=== PATIENT | female | born 1960 | race Caucasian/White ===

== ENCOUNTER 2017-05-04 06:29 | Day surgery (SDC) | payer OTHER ==
[~2017-05-04] VITALS: Ht 170.2 cm; Wt 113.4 kg
[~2017-05-04 06:29] MED LIST: TRAMADOL HCL50 MG PO
[2017-05-04] MEDS ORDERED: TIROSINT75 MCG PO (07:50)
[2017-05-04] MEDS ORDERED: IRON18 MG PO (07:51)
[2017-05-04] MEDS ORDERED: DAILY MULTIPLE1 EACH PO (07:51)
[2017-05-04] MEDS ORDERED: WELLBUTRIN XL300 MG PO (07:51)
[2017-05-04] MEDS ORDERED: LEXAPRO10 MG PO (07:51)
[2017-05-04] MEDS ORDERED: VITAMIN E100 UNI1 PO (07:52)
--- NOTE | 2017-05-04 09:17 | NUR ---
05[facility]04/17 0917 [facility], O2 TURNED OFF.
--- NOTE | 2017-05-06 22:37 | OR ---
[facility] [address] [place], [place] [address] Signed DATE OF SERVICE: 05/04/2017 PREOPERATIVE DIAGNOSES: History of colonic polyps at 20 cm, 2011. Family history of colon cancer in mother and brother. POSTOPERATIVE DIAGNOSES: Two diminutive polyps at the splenic flexure (excised). Sessile polyp at 18 cm (excised). PROCEDURE PERFORMED: Total colonoscopy to cecum with hot snare polypectomy x1 and cold morcellation polypectomy x2. SURGEON: Cal Vasquez MD. ANESTHESIA: Intravenous sedation, fentanyl 100 mcg, Versed 5 mg. INDICATION: This 57-year-old white woman was a patient of Soheila LOCKHART in the past and has known family history of colon cancer in the mother and brother. She underwent laparoscopic cholecystectomy with cholangiogram by me in September of 2016 for acute cholecystitis. She has recovered fully from that. She did undergo colonoscopy by me in 2011 where she was noted to have an adenoma at 20 cm. This was excised at that time. She is generally symptom-free. She is admitted to undergo colonoscopy understanding the risks of bleeding, infection, and perforation. FINDINGS: The prep was good. Complete colonoscopy was undertaken to the cecum. There were 2 diminutive polyps of the splenic flexure, which were excised with cold morcellation technique. There was a sessile polyp at 18 cm, which was excised with hot snare polypectomy technique. There were no other findings or concern other than internal hemorrhoids. PROCEDURE IN DETAIL: The patient was brought to the endoscopy suite and placed in lateral decubitus position. Given intravenous sedation to the point of slurred speech and nystagmus. Digital rectal examination was normal. An Olympus video colonoscope was passed in the rectum and manipulated throughout the colon. At the splenic flexure, there were 2 very small mucosal diminutive polyps. They Electronically Signed By: CAL VASQUEZ MD 05/06/17 2237 PATIENT NAME: LEO BARBA OPERATIVE REPORT DATE OF : 64 PHYSICIAN: CAL VASQUEZ MD REPORT #: [id number] REPORT IS CONFIDENTIAL AND NOT TO BE RELEASED WITHOUT AUTHORIZATION [facility] [address] [place], [place] [address] Signed were excised with cold morcellation technique. The scope was advanced ultimately to the cecum. The irrigation was undertaken in the cecum. The appendiceal orifice was well identified as was the ileocecal valve. The scope was withdrawn from that point. Examination throughout showed no sign of abnormality, until the area of initial polypectomy by cold morcellation technique of the splenic flexure was identified, confirming its position. The scope was further withdrawn and at 18 cm from the anal verge was a sessile polyp. T h is was excised with hot snare polypectomy technique in the usual way. The specimen was passed for pathology. Further withdrawal of scope allowed for retroflexed view in the rectum showing internal hemorrhoidal changes and some hypertrophied anal papilla. The scope was removed. The patient was taken to recovery room in good condition. CONCLUDING DIAGNOSIS: Polyps x3. PLAN: Recommend repeat colonoscopy in 5 years, sooner if clinically indicated. She will return to the ongoing care of Soheila Kelly or another provider of her choice. MD MARCIAL Mcdonough/Mingl /[id number] Electronically Signed By: CAL VASQUEZ MD 05/06/17 2237 PATIENT NAME: LEO BARBA OPERATIVE REPORT DATE OF : 64 PHYSICIAN: CAL VASQUEZ MD REPORT #: [id number] REPORT IS CONFIDENTIAL AND NOT TO BE RELEASED WITHOUT AUTHORIZATION
== END 2017-05-04 09:41 | disposition home or self-care (01) ==
LOC: OPS 06:29 → DS 06:29 → OPS 08:30 → DS 05-14 08:30 → OPS 05-14 08:30
PROVIDERS: Surgery
PROC: 0DBL8ZX Excision of Transverse Colon, Via Natural or Artificial Opening Endoscopic, Diagnostic (ICD-10-PCS; 2017-05-04)
PROC: 0DBN8ZX Excision of Sigmoid Colon, Via Natural or Artificial Opening Endoscopic, Diagnostic (ICD-10-PCS; principal; 2017-05-04 08:30)
DX: Z12.11 Encounter for screening for malignant neoplasm of colon (principal); D12.3 Benign neoplasm of transverse colon; K51.40 Inflammatory polyps of colon without complications; K64.8 Other hemorrhoids; E03.9 Hypothyroidism, unspecified; F32.9 Major depressive disorder, single episode, unspecified; Z86.010 Personal history of colon polyps; Z80.0 Family history of malignant neoplasm of digestive organs; Z88.5 Allergy status to narcotic agent; Z90.710 Acquired absence of both cervix and uterus; Z90.49 Acquired absence of other specified parts of digestive tract; Z98.890 Other specified postprocedural states
CPT/HCPCS: 99152; 99153; J2250; J3010; J7120

== ENCOUNTER 2024-05-02 06:42 | Day surgery (SDC) | payer OTHER ==
[2024-04-26 14:48] VITALS: BP 126/89
[~2024-05-02] VITALS: Ht 170.2 cm; Wt 125.0 kg
--- NOTE | ~2024-05-02 | OR ---
[facility] [address] [place], [place] [address] Draft DATE OF OPERATION: 05/02/2024 SURGEON: Jackie Rubio MD PREOPERATIVE DIAGNOSIS: Degenerative joint disease, left knee. POSTOPERATIVE DIAGNOSIS: Degenerative joint disease, left knee. PROCEDURE PERFORMED: Left total knee arthroplasty with Doug. LEATHER SCRUBBER: Soheila Kelly PA-C. Soheila was present and critical for all portions of procedure. ANESTHESIA: Spinal. BLOOD LOSS: 175 mL. TOURNIQUET TIME: Zero. IMPLANTS: Tom Triathlon size 4, 10 mm polyethylene and 32 mm patella. BRIEF HISTORY: Leslie is a 64-year-old female with progressive worsening of osteoarthritis, worst in the patellofemoral compartment. Risks, benefits, and alternatives of surgery were discussed with her, she understood and wished to proceed. DESCRIPTION OF PROCEDURE: Once consent was obtained, she was taken to the operating room. After adequate anesthesia, she was placed on the operating room table. All downside pressure points were well padded and a hip bump was placed under the left hip. The leg was then prepped and draped in a standard sterile fashion. The knee was approached through a standard anterior midline incision. Skin flaps were developed medially and laterally. A low PATIENT NAME: LESLIE BARBA OPERATIVE REPORT DATE OF : 64 REPORT #: [id number] PHYSICIAN: JACKIE RUBIO MD PCP: KARISSA NORRIS MD REPORT IS CONFIDENTIAL AND NOT TO BE RELEASED WITHOUT AUTHORIZATION [facility] [address], [place] [address] Draft midvastus arthrotomy was performed and the infrapatellar fat pad was excised. The MCL was elevated as a sleeve around to the posteromedial corner. The anterior horns of the menisci were transected as was the ACL, PCL was found to be intact. The computer arrays for the Doug system were placed in the medial femoral condyle and proximal tibia. The leg was then registered with the computer as were the fine anatomic points of the knee. The four ligamentous poses were then taken. Minor adjustments were made to the position of the implant. The robot was then brought in. The four straight cuts were made followed by the two angle cuts with care taken to protect the patellar tendon and MCL. The bony remnants were removed as were any remaining osteophytes. The posterior femoral osteophyte was removed off the medial side. No posterior release was performed. The trials were then positioned and the knee was taken from 110 degrees to 0 with good stability throughout. The patella was cut sized and drilled for a 32 mm patella. It tracked well. The distal femoral drill holes were completed. The proximal tibia was finished using the keel punch followed by the drill holes. The implants were then obtained. The tibia was impacted into position until it was seated and flushed. The polyethylene was snapped into position. The femur was impacted. The knee was then extended and loaded. The patella was clamped into position. Once again, the knee was taken through range of motion and found to be satisfactory. The patella tracked well. The periarticular soft tissues were injected with 100 mL of ropivacaine and Toradol mixture. The On-Q pain pump was percutaneously placed into the adductor canal from the suprapatellar pouch. Arthrotomy was then closed using a combination of #2 FiberWire and #2 Stratafix. The subdermal was closed with 0 Stratafix and the skin was closed with 3-0 Stratafix. The wound was sealed with LiquiBand and Steri-Strips, dressed with an Acticoat-7 dressing, ABD, and Enrique wrap. She tolerated the procedure well. All sponge, needle, and instrument counts were correct. Jackie Rubio MD BA/MODL /[id number] Copies: ~ PATIENT NAME: LESLIE BARBA OPERATIVE REPORT DATE OF : 64 REPORT #: [id number] PHYSICIAN: JACKIE RUBIO MD PCP: KARISSA NORRIS MD REPORT IS CONFIDENTIAL AND NOT TO BE RELEASED WITHOUT AUTHORIZATION
[~2024-05-02 06:42] MED LIST changes: +24 HOUR ALLER15.8 ML NS; +AVAPRO75 MG PO; +CYMBALTA60 MG PO; +DAILY MULTIPLE1 EACH PO; +IRON18 MG PO; +LACTATED RINGER'S 1,000 ML IV SCH; +LEXAPRO10 MG PO; +LEXAPRO20 MG PO; +MOVE FREE JOIN1 EACH PO; +Ropivacaine HCl 20 MG/10 ML AMP ONE; +TIROSINT75 MCG PO; +VITAMIN E100 UNI1 PO; +WELLBUTRIN XL300 MG PO
[2024-05-02 06:59] VITALS: BP 139/76
[2024-05-02] MEDS ORDERED: CEFAZOLIN SODIUM 2 GM/20 ML SYR IV SCH (07:00)
[2024-05-02] MEDS ORDERED: ondansetron HCL 4 MG TAB PO SCH (07:00)
[2024-05-02] MEDS ORDERED: OXYCODONE HCL 5 MG TAB PO SCH (07:00)
[2024-05-02] MEDS ORDERED: INTRA-ARTICULAR ANALGESIC INJECTION XX SCH (07:00)
[2024-05-02] MEDS ORDERED: GABAPENTIN 600 MG TAB PO SCH (07:00)
[2024-05-02] MEDS ORDERED: IBLOOD GLUCOSE TEST STRIP 1 EA TEST VI PRN (07:00)
[2024-05-02] MEDS ORDERED: PANTOPRAZOLE SODIUM 40 MG TABEC PO SCH (07:00)
[2024-05-02] MEDS ORDERED: LIDOCAINE HCL 1% 5 ML SDV INJ ONE (07:00)
[2024-05-02] MEDS ORDERED: TRANEXAMIC ACID 2,000 MG in SODIUM CHLORIDE 0.9% 100 ML IV SCH (07:00)
[2024-05-02] MEDS ORDERED: ROPIVACAINE IN 0.9% SOD CHL/PF 545 ML ELS.PMP.HR IRRIGATION SCH (07:00)
[2024-05-02] MEDS ORDERED: SODIUM CHLORIDE 0.9% 20 ML IV ONE (08:05)
[2024-05-02] MEDS ORDERED: Ropivacaine HCl 0.5% 30 ML VIAL ONE ×2 (08:05→10:23)
[2024-05-02] MEDS ORDERED: DEXAMETHASONE SOD PHOS 4 MG/ML VIAL ONE (08:05)
[2024-05-02] MEDS ORDERED: LIDOCAINE HCL 2% 5 ML SDV ONE ×3 (08:06→09:18)
[2024-05-02] MEDS ORDERED: MIDAZOLAM HCL 2 MG/2 ML VIAL ONE (08:08)
[2024-05-02] MEDS ORDERED: propofoL 200 MG/20 ML VIAL ONE ×3 (08:20→10:25)
[2024-05-02] MEDS ORDERED: OXYCODONE HCL 5 MG TAB PO PRN (08:45)
[2024-05-02] MEDS ORDERED: ACETAMINOPHEN 1,000 MG/100 ML VIAL ONE (09:29)
[2024-05-02] MEDS ORDERED: CEFUROXIME250 MG PO (10:28)
[2024-05-02] MEDS ORDERED: XARELTO10 MG PO (10:29)
[2024-05-02] MEDS ORDERED: SENNA LAX8.6 MG PO (10:29)
[2024-05-02] MEDS ORDERED: DICLOFENAC SODI75 MG PO (10:29)
[2024-05-02] MEDS ORDERED: GABAPENTIN300 MG PO (10:29)
[2024-05-02] MEDS ORDERED: OXYCODONE HCL5 MG PO (10:30)
[2024-05-02] MEDS ORDERED: ACETAMINOPHEN500 MG PO (10:30)
--- NOTE | 2024-05-02 10:50 | NUR ---
05/02/24 1050 Lupis Peralta 1040- PT ARRIVES TO PACU AWAKE AND TALKING. PT REPORTS NO PAIN OR NAUSEA. RESP EVEN AND UNLABORED. OXYGEN SAT HIGH 90'S ON 2L VIA NC. BILATERAL THERESE HOSE IN PLACE ALONG WITH FOOT PUMPS. ON Q PUMP INFUSING AT 4ML/HR NO CLAMPS NOTED. 1049- PT PROVIDED ICE WATER PER HER REQUEST. TOLERATING WELL.
[2024-05-02 11:20] VITALS: BP 102/71
--- NOTE | 2024-05-02 11:20 | NUR ---
PT ARRIVES TO DS UNIT FROM PACU VIA STRETCHER. PT IS SITTING UP IN BED A&O AND REPORTS PAIN 0/10 AT THIS TIME. SPINAL IS AT HIP LEVEL, PT REPORTS N/T IN BLE & SLIGHTLY ABLE TO WIGGLE TOES. HEEL PROTECTORS, THERESE HOSE, CRYO CUFF, AND FOOT PUMPS IN PLACE. PT TOLERATING ICE WATER WITHOUT DIFFICULTY. REPORT RECEIVED FROM DAVE CRISOSTOMO, PT FRIEND AT BEDSIDE. DRESSING IS C/D/I, NO SIGNS OF BLEEDING AT THIS TIME. CALL LIGHT WITHIN REACH, PT REPORTS NO FURTHER NEEDS OR QUESTIONS AT THIS TIME. WARM BLANKETS PROVIDED.
[2024-05-02] MEDS ORDERED: TRANEXAMIC ACID 2,000 MG in SODIUM CHLORIDE 0.9% 100 ML IV ONE (11:30)
--- NOTE | 2024-05-02 12:00 | NUR ---
IN PT ROOM FOR TXA ADMIN, IV WNL, FLUSHED W/10 ML OF LR. PT CONSUMED 100% OF COFFEE, PUDDING, AND CRACKERS AND REPORTS NO ONSET OF NAUSEA. PT STATES SHE IS ABLE TO LIFT LEGS UP AND WIGGLE TOES WITHOUT DIFFICULTY AT THIS TIME. CALL LIGHT WITHIN REACH, TURKEY SANDWICH PROVIDED FROM KITCHEN, PT REPORTS NO FURTHER NEEDS OR QUESTIONS AT THIS TIME.
[2024-05-02 12:24] VITALS: BP 127/63
--- NOTE | 2024-05-02 12:25 | NUR ---
IN PT ROOM FOR VS AND ASSESSMENT. PT REPORTS PAIN TOLERABLE AT 2/10 AND STATES NO NEED FOR PRN PAIN MED AT THIS TIME. SPINAL HAS RESOLVED. PT ABLE TO MOVE LEGS AND WIGGLE TOES WITHOUT DIFFICULTY. DRESSING IS CLEAN AND DRY EXCEPT SMALL AMOUNT OF BLEEDING FROM ONQ PUMP SITE. WARM WATER PROVIDED AT PT REQUEST. PT TOLERATED 100% OF SANDWICH AND REPORTS NO NAUSEA. CALL LIGHT WITHIN REACH, PT STATES NO FURTHER NEEDS AT THIS TIME.
--- NOTE | 2024-05-02 12:55 | NUR ---
ANSWERED PT CALL LIGHT D/T REPORT OF NEED TO URINE VOID. PT SITS AT EDGE OF BED AND REPORTS NO DIZZINESS OR NAUSEA, AND PT ABLE TO FEEL GROUND UNDERNEATH FEET. SPINAL RESOLVED. PT UP TO BEDSIDE COMMODE W/2RN ASSIST. PT URINE VOID 350 ML OF CLEAR/YELLOW URINE AND BACK TO BED AT THIS TIME. DRESSING REMAINS C/D/I. SMALL AMOUNT OF SS DRAINAGE FROM ONQ INSERTION SITE DRESSING. PER DAMIR BUNCH, REINFORCE W/ADDITIONAL OPSITE. CALL LIGHT WITHIN REACH. PT REPORTS NO FURTHER NEEDS AT THIS TIME, FRIEND AT BEDSIDE.
[2024-05-02 13:24] VITALS: BP 121/74
--- NOTE | 2024-05-02 14:00 | NUR ---
PT STATES FRIEND CURRENTLY WAITING ON ABX, REST OF PRESCRIPTIONS OBTAINED WITHOUT DIFFICULTY. PT STATES SHE WILL KEEP UPDATED ON SITUATION. CALL LIGHT WITHIN REACH, ICE WATER REFILLED, ICE PACK IN PLACE. PT REPORTS NO FURTHER NEEDS OR QUESTIONS AT THIS TIME.
--- NOTE | 2024-05-02 14:30 | NUR ---
IN PT ROOM FOR CHECK IN. PT STATES FRIEND IS WORKING ON GETTING LAST ABX PRESCRIPTION FROM [facility] REPORTING THEY DO NOT HAVE CORRECT DOSE OF ABX FOR PT THAT WAS ORDERED BY DAMIR BUNCH. PT CONTINUES TO LAY IN BED AWAITING FRIEND TO PICK HER UP. PT REPORTS NO NEEDS OR QUESTIONS AT THIS TIME.
--- NOTE | 2024-05-02 14:40 | NUR ---
PT TO PHYSICAL THERAPY WITH MEGAN. MAGANA TO REINFORCE ON-Q INSERTION SITE.
[2024-05-02] MEDS ORDERED: ACETAMINOPHEN 500 MG TAB PO SCH (15:00)
[2024-05-02] MEDS ORDERED: GABAPENTIN 300 MG CAP PO SCH (15:00)
--- NOTE | 2024-05-02 15:00 | NUR ---
PT BACK TO UNIT FROM WORKING WITH EDDIE FROM PHYSICAL THERAPY. THIS RN IN ROOM FOR ASSESSMENT AND VS. PT REPORTS PAIN IS TOLERABLE AT 1/10, STATES NO NEED FOR PRN PAIN MED AT THIS TIME. NO NEW SIGNS OF BLEEDING AT INCISION SITES. ONQ INSERTION SITE DRESSING REMAINS LEAKY, BUT REMAINS UNDER OPSITE DRESSING. PT DRESSED W/EDDIE FROM PHYSICAL THERAPY'S ASSISTANCE. CALL LIGHT WITHIN REACH.
[2024-05-02 15:07] VITALS: BP 144/86
--- NOTE | 2024-05-02 15:10 | NUR ---
DAMIR BUNCH CALLED AND UPDATED ON PT MEETING OF REQUIREMENTS. VERBAL ORDER FOR DISCHARGE RECEIVED AT THIS TIME.
--- NOTE | 2024-05-02 15:15 | NUR ---
THIS RN IN ROOM FOR CLINICAL RESEARCH NURSE AND DISCHARGE EDUCATION. PT AND PT FRIEND STATE VERBAL UNDERSTANDING OF DISCHARGE EDUCATION AND NO FURTHER QUESTIONS OR NEEDS AT THIS TIME. PT FRIEND TO PHARMACY TO RETRIEVE MEDS AND THEN WILL COME BACK TO GANG BORE OPERATOR PT. ICE PACK, INCENTIVE SPIROMETER PROVIDED. ONQ INSERTION SITE DRESSING REINFORCED W/DEEPTHI WRAP. IV DC'ED, WNL, GAUZE & COBAN IN PLACE. PT RESTING IN BED WAITING FOR FRIEND TO COME PICK HER UP. CALL LIGHT WITHIN REACH.
[2024-05-02] MEDS ORDERED: CEFAZOLIN SODIUM 3 GM/30 ML SYR IV SCH (16:00)
--- NOTE | 2024-05-02 17:10 | NUR ---
PT REPORTS FRIEND ISAURA WAS ABLE TO GET THE ABX PRESCRIPTION FROM [facility]. PT CONTINUES TO STATE SHE IS READY TO GO HOME.
--- NOTE | 2024-05-02 17:21 | NUR ---
PT ESCORTED OFF OF UNIT VIA WC TO PASSENGER SIDE OF LUIS MANUEL DELAROSA'S VEHICLE. THIS RN STANDBY ASSIST PT STAND/PIVOT'S TO SEAT WITHOUT DIFFICULTY. ALL BELONGINGS IN PT POSSESSION AT THIS TIME. LUIS MANUEL DELAROSA WAS ABLE TO RETRIEVE ALL PT PRESCRIPTIONS. PT REPORTS NO FURTHER QUESTIONS OR NEEDS AT THIS TIME.
[2024-05-02] MEDS ORDERED: SENNOSIDES 1 TAB PO SCH (21:00)
[2024-05-03] MEDS ORDERED: DICLOFENAC SOD 75 MG TABEC PO SCH (08:00)
[2024-05-03] MEDS ORDERED: Rivaroxaban 10 MG TAB PO SCH (08:00)
[2024-05-03] MEDS ORDERED: cefuroxime axetiL 250 MG TAB PO SCH (09:00)
== END 2024-05-02 15:40 | disposition home or self-care (01) ==
LOC: DS 06:42
PROVIDERS: ATTEND Specialist
PROC: 0SRD0JZ Replacement of Left Knee Joint with Synthetic Substitute, Open Approach (ICD-10-PCS; principal; 2024-05-02 09:30)
DX: M17.12 Unilateral primary osteoarthritis, left knee (principal); E78.00 Pure hypercholesterolemia, unspecified; E03.9 Hypothyroidism, unspecified; I10 Essential (primary) hypertension; Z88.8 Allergy status to other drugs, medicaments and biological substances; Z79.899 Other long term (current) drug therapy
CPT/HCPCS: 73560; A9270; J0131; J0690; J1100; J2001; J2250; J2704; J2795; J7121; J7999

== ENCOUNTER 2025-03-20 05:33 | Day surgery (SDC) | payer OTHER ==
[2025-03-07 16:25] VITALS: BP 119/85
[~2025-03-20] VITALS: Ht 170.2 cm; Wt 127.3 kg
[~2025-03-20 05:33] MED LIST changes: +ACETAMINOPHEN500 MG PO; +CEFUROXIME250 MG PO; +DICLOFENAC SODI75 MG PO; +GABAPENTIN300 MG PO; +OXYCODONE HCL5 MG PO; +OZEMPIC2 MG/0.75 SQ; -Ropivacaine HCl 20 MG/10 ML AMP ONE; +SENNA LAX8.6 MG PO; +XARELTO10 MG PO
[2025-03-20] MEDS ORDERED: Ropivacaine HCl 20 MG/10 ML AMP ONE (05:57)
[2025-03-20 06:03] VITALS: BP 125/67
[2025-03-20] MEDS ORDERED: IRON18 M1 PO (06:07)
[2025-03-20] MEDS ORDERED: COQ-10100 MG PO (06:08)
[2025-03-20] MEDS ORDERED: DEXAMETHASONE SOD PHOS 4 MG/ML VIAL ONE (06:11)
[2025-03-20] MEDS ORDERED: propofoL 200 MG/20 ML VIAL ONE ×2 (06:11→10:21)
[2025-03-20] MEDS ORDERED: MIDAZOLAM HCL 2 MG/2 ML VIAL ONE (06:11)
[2025-03-20] MEDS ORDERED: ondansetron HCL 4 MG/2 ML VIAL ONE (06:11)
[2025-03-20] MEDS ORDERED: LIDOCAINE HCL 2% 5 ML SDV ONE ×3 (06:11→10:21)
[2025-03-20] MEDS ORDERED: KETAMINE in NS 50 MG/5 ML SYR ONE (06:11)
[2025-03-20] MEDS ORDERED: Ropivacaine HCl 0.5% 30 ML VIAL ONE ×2 (06:12→10:21)
[2025-03-20] MEDS ORDERED: dexmedeTOMIDine HCl 200 MCG/2 ML VIAL ONE (06:12)
[2025-03-20] MEDS ORDERED: EPINEPHrine HCL 1 MG/ML AMP ONE (06:12)
[2025-03-20] MEDS ORDERED: PANTOPRAZOLE SODIUM 40 MG TABEC PO SCH (07:00)
[2025-03-20] MEDS ORDERED: CEFAZOLIN SODIUM 3 GM/30 ML SYR IV SCH ×2 (07:00→15:00)
[2025-03-20] MEDS ORDERED: IBLOOD GLUCOSE TEST STRIP 1 EA TEST VI PRN (07:00)
[2025-03-20] MEDS ORDERED: OXYCODONE HCL 5 MG TAB PO PRN (07:00)
[2025-03-20] MEDS ORDERED: LIDOCAINE HCL 1% 5 ML SDV INJ ONE (07:00)
[2025-03-20] MEDS ORDERED: ondansetron HCL 4 MG TAB PO PRN (07:00)
[2025-03-20] MEDS ORDERED: TRANEXAMIC ACID IN NACL,ISO-OS 1,000 MG/100 ML PIGGYBACK IV SCH ×3 (07:00→09:55)
[2025-03-20] MEDS ORDERED: OXYCODONE HCL 5 MG TAB PO SCH (07:00)
[2025-03-20] MEDS ORDERED: KETOROLAC TROMETHAMINE 30 MG/ML VIAL IV PRN (07:00)
[2025-03-20] MEDS ORDERED: ondansetron HCL 4 MG TAB PO SCH (07:00)
[2025-03-20] MEDS ORDERED: INTRA-ARTICULAR ANALGESIC INJECTION XX SCH (07:00)
[2025-03-20] MEDS ORDERED: ROPIVACAINE IN 0.9% SOD CHL/PF 545 ML ELS.PMP.HR IRRIGATION SCH (07:00)
[2025-03-20] MEDS ORDERED: GABAPENTIN 600 MG TAB PO SCH (07:00)
[2025-03-20] MEDS ORDERED: PHENYLEPHRINE HCL 10 MG/ML VIAL ONE (07:38)
[2025-03-20] MEDS ORDERED: TRANEXAMIC ACID IN NACL,ISO-OS 100 ML IV ONE (08:07)
[2025-03-20] MEDS ORDERED: CEFUROXIME250 MG PO (08:31)
[2025-03-20] MEDS ORDERED: DICLOFENAC SODI75 MG PO (08:32)
[2025-03-20] MEDS ORDERED: OXYCODONE HCL5 MG PO (08:32)
[2025-03-20] MEDS ORDERED: GABAPENTIN300 MG PO (08:32)
[2025-03-20] MEDS ORDERED: SENNA LAX8.6 MG PO (08:32)
[2025-03-20] MEDS ORDERED: XARELTO10 MG PO (08:33)
[2025-03-20] MEDS ORDERED: NALOXONE HCL 0.4 MG SYR IV PRN (09:00)
[2025-03-20] MEDS ORDERED: droPERidol 5 MG/2 ML VIAL IV PRN (09:00)
--- NOTE | 2025-03-20 09:15 | NUR ---
0915-PT BACK TO ROOM FROM PACU ON RA. RECEIVED REPORT FROM KEVIN CRISOSTOMO. PT IS AWAKE. DENIES PAIN AND NAUSEA. CRYO CUFF IN PLACE AND RUNNING. ON-Q PUMP SET AT 4. PT DRINKING WATER AND EATING PUDDING. NO OTHER NEEDS AT THIS TIME. FRIEND IN ROOM. CALL LIGHT WITHIN PLACE.
[2025-03-20 09:20] VITALS: BP 106/61
--- NOTE | 2025-03-20 09:26 | NUR ---
03/20/25 0926 Isabella Keith 0836-PT ARRIVES TO PACU, VIA STRETCHER, RESTING HIGH FOWLERS, PT A+OX4 DENIES PAIN OR NAUSEA. VSS ON 6L VIA MASK. CRYO CUFF APPLIED TO RT KNEE. 0840-PT TITRATED TO RA, VS REMAIN STABLE, PT SIPPING ON WATER. 0857-AIR BAG CURER AT BEDSIDE FOR POST OP RT KNEE X-RAY. 0915-PT TAKEN BACK TO DAY SURGERY, VIA STRETCHER, BEDSIDE REPORT GIVEN TO RN, ALL QUESTIONS ANSWERED. PT TALKING TO FAMILY MEMBER AT BEDSIDE, DENIES PAIN OR NAUSEA, VSS ON RA.
[2025-03-20 10:12] VITALS: BP 123/6
[2025-03-20] MEDS ORDERED: SODIUM CHLORIDE 0.9% 20 ML IV ONE (10:21)
[2025-03-20] MEDS ORDERED: DEXAMETHASONE SOD PHOS 10 MG/ML VIAL ONE (10:26)
--- NOTE | 2025-03-20 10:40 | OR ---
[facility] [address] [place], [place] [address] Signed DATE OF OPERATION: 03/20/2025 SURGEON: Jackie Rubio MD PREOPERATIVE DIAGNOSIS: Degenerative joint disease, right knee. POSTOPERATIVE DIAGNOSIS: Degenerative joint disease, right knee. PROCEDURE PERFORMED: Right total knee arthroplasty with Doug. OFFICE SUPPORT CLERK: Soheila Kelly PA-C. Soheila was present and critical for all portions of procedure. ANESTHESIA: Spinal. BLOOD LOSS: 200 mL. TOURNIQUET TIME: Zero. IMPLANTS: Tom Triathlon size 4 femur, 5 tibia, 10 mm polyethylene and a 32 patella. BRIEF HISTORY: Leslie is a 65-year-old female with progressive worsening of mehe-zd-unew arthritis medially. Nonoperative treatment failed to control her symptoms. She wished to proceed with operative intervention. Risks, benefits, and alternatives were discussed at length. DESCRIPTION OF PROCEDURE: Once consent was obtained, she was taken to the operating room. After adequate anesthesia she was placed on the operating room table. All downside pressure points were well padded. Hip bump was placed. The leg was then prepped and draped in a standard sterile fashion. Standard anterior approach through a straight incision was Electronically Signed By: JACKIE RUBIO MD 03/20/25 1040 PATIENT NAME: LESLIE BARBA OPERATIVE REPORT DATE OF : 64 REPORT #: [id number] PHYSICIAN: JACKIE RUBIO MD PCP: KARISSA NORRIS MD REPORT IS CONFIDENTIAL AND NOT TO BE RELEASED WITHOUT AUTHORIZATION [facility] [address] [place], [place] [address] Signed taken through skin and subcutaneous tissue. A low mid vastus arthrotomy was performed and the MCL was elevated as a sleeve around to the posterior medial corner. The infrapatellar fat pad was excised. The anterior horns of menisci were transected as was the ACL. The PCL was found to be intact. The computer arrays were then placed in the distal femur and proximal tibia. The leg was then registered with the computer as were the fine John points of the knee. The four ligamentous poses were then taken and slight adjustments were made to add valgus to the femur. Once this was completed, the knee was balanced. The robot was brought in, four straight cuts and two angle cuts were made with care taken to protect the patellar tendon and MCL. The posterior osteophytes removed off the femur, no release was performed. The trials were then positioned. Knee was taken through range of motion and found to be quite stable in good alignment. The patella was cut, sized and drilled for a 32 mm patella. Distal femoral drill holes were completed as was the proximal tibia with the keel punch followed by the drill guide. The implants were obtained and the tibia was impacted into position until it was seated flush. The polyethylene was snapped on and the femur was impacted. The knee was extended and loaded. The patella was clamped into position until the patellar component was completely flushed. The knee was taken through range of motion and the patella which was significantly subluxed laterally preoperatively continued to sublux. We then performed a lateral release to the center of the patella. Once this was completed, the knee was copiously irrigated with one bottle Surgiphor followed by normal saline. Periarticular soft tissues were injected with 100 mL ropivacaine and Toradol mixture. The On-Q pain pump was percutaneously placed into the adductor canal from the suprapatellar pouch. The arthrotomy was then closed using a combination of #2 FiberWire and #2 Stratafix, subcutaneous tissue with 0 Stratafix and skin with 3-0 Stratafix. The wound was sealed LiquiBand and dressed with an Acticoat-7 dressing, ABDs and Enrique wrap. She tolerated the procedure well. All sponge, needle, and instrument counts were correct. Jackie Rubio MD BA/MODL /[id number] Electronically Signed By: JACKIE RUBIO MD 03/20/25 1040 PATIENT NAME: LESLIE BARBA OPERATIVE REPORT DATE OF : 64 REPORT #: [id number] PHYSICIAN: JACKIE RUBIO MD PCP: KARISSA NORRIS MD REPORT IS CONFIDENTIAL AND NOT TO BE RELEASED WITHOUT AUTHORIZATION [address] [place] [address] Signed Copies: ~ Electronically Signed By: JACKIE RUBIO MD 03/20/25 1040 PATIENT NAME: LESLIE BARBA IRA OPERATIVE REPORT DATE OF : 64 REPORT #: [id number] PHYSICIAN: JACKIE RUBIO MD PCP: KARISSA NORRIS MD REPORT IS CONFIDENTIAL AND NOT TO BE RELEASED WITHOUT AUTHORIZATION
--- NOTE | 2025-03-20 10:52 | NUR ---
LE 1012-PT LAYING IN BED. RESP EVEN AND UNLABORED. RATES PAIN 8/10. DENIES NAUSEA. WHEN ASKED ABOUT LOCATION OF PAIN PT STATES "PAIN IS ALL OVER". CRYO CUFF IN PLACE AND RUNNING. ON-Q PUMP SET AT 4. WILL TALK WITH INFRASTRUCTURE SECURITY ARCHITECT ABOUT A RESCUE BLOCK. FRIEND AT BEDSIDE. CALL LIGHT WITHIN REACH. LIBRADO 1020-SILVANO INFRASTRUCTURE SECURITY ARCHITECT IN ROOM TO TALK WITH PT ABOUT BLOCK. LE 1026-PHONE CALL TO OR 2. TALKED WITH MARY ABOUT INCREASE ON-Q PUMP. VO TO INCREASE ON-Q PUMP TO 6. LIBRADO 1031-SILVANO INFRASTRUCTURE SECURITY ARCHITECT IN PT'S ROOM TO BLOCK.
--- NOTE | 2025-03-20 10:59 | NUR ---
LE 1044-PT REPOSITIONS SELF. RATES PAIN 03/07. WARM BLANKET PROVIDED. CALL LIGHT WITHIN REACH.
--- NOTE | 2025-03-20 11:00 | NUR ---
1058-PT RATES PAIN 11/07. NO OTHER NEEDS AT THIS TIME. CALL LIGHT WITHIN REACH.
[2025-03-20 11:20] VITALS: BP 104/62
[2025-03-20 12:22] VITALS: BP 110/68
--- NOTE | 2025-03-20 12:25 | NUR ---
LE 1120-PT LAYING IN BED. RESP EVEN AND UNLABORED. RATES PAIN 3/10. DENIES NAUSEA. CRYO CUFF IN PLACE AND RUNNING. ON-Q PUMP SET AT 6. NO OTHER NEEDS AT THIS TIME. CALL LIGHT WITHIN REACH. LE 1125-PT UP TO BEDSIDE COMMODE. PT VOIDS 350ML OF YELLOW URINE. LE 1130-PT TRANSFERS SELF BACK TO BED. TOLERADED WELL. CALL LIGHT WITHIN REACH.
--- NOTE | 2025-03-20 12:29 | NUR ---
1225-PT LAYING IN BED. RESP EVEN AND UNLABORED. RATES PAIN 3/10. DENIES NAUSEA. CRYO CUFF IN PLACE AND RUNNING. ON-Q PUMP DECREASED TO 4 PER MARY LOCKHART. PT FINISHED LUNCH. NO OTHER NEEDS AT THIS TIME. CALL LIGHT WITHIN REACH.
[2025-03-20 14:07] VITALS: BP 116/53
--- NOTE | 2025-03-20 14:45 | NUR ---
LIBRADO 1409-PT BACK TO ROOM FROM PHYSICAL THERAPY. PT SITTING IN BED. RATES PAIN 3/10 AND THIS IS TOLERABLE FOR HER. ON-Q PUMP SET AT 4. PT IS READY TO GO HOME. PT IS DRESSED. FRIEND AT BEDSIDE. CALL LIGHT WITHIN REACH.
--- NOTE | 2025-03-20 14:46 | NUR ---
LE 1425-WENT OVER DISCHARGE INSTRUCTIONS WITH PT AND HER FRIEND. WENT OVER POSTOP MEDICATIONS. ALL QUESTIONS ANSWERED. LE 1430-PT AMBULATES TO WHEELCHAIR. RIDE PROVIDED TO FRONT OF HOSPITAL WHERE FRIEND WAS WAITING WITH THE CAR. PT TRANSFERS SELF INTO CAR.
[2025-03-20] MEDS ORDERED: GABAPENTIN 300 MG CAP PO SCH (15:00)
[2025-03-20] MEDS ORDERED: SENNOSIDES 1 TAB PO SCH (21:00)
[2025-03-21] MEDS ORDERED: CELECOXIB 200 MG CAP PO SCH (08:00)
[2025-03-21] MEDS ORDERED: cefuroxime axetiL 250 MG TAB PO SCH (09:00)
== END 2025-03-20 14:30 | disposition home or self-care (01) ==
LOC: DS 05:33
PROVIDERS: ATTEND Specialist
PROC: 0SRC06Z Replacement of Right Knee Joint with Oxidized Zirconium on Polyethylene Synthetic Substitute, Open Approach (ICD-10-PCS; principal; 2025-03-20 07:00)
DX: M17.11 Unilateral primary osteoarthritis, right knee (principal); I10 Essential (primary) hypertension; E03.9 Hypothyroidism, unspecified; E11.9 Type 2 diabetes mellitus without complications; E78.5 Hyperlipidemia, unspecified
CPT/HCPCS: 01402; 64447; 73560; 97161; A9270; C1713; C1776; J0173; J0690; J1100; J1885; J2003; J2250; J2371; J2405; J2704; J2795; J3490; J7121; J7999

== ENCOUNTER 2025-08-29 17:09 | Emergency (ER) | payer OTHER ==
[~2025-08-29] VITALS: Ht 170.2 cm; Wt 125.9 kg
[~2025-08-29 17:09] MED LIST changes: +COQ-10100 MG PO; +IRON18 M1 PO; -LACTATED RINGER'S 1,000 ML IV SCH
--- OUTSIDE RECORDS SUMMARY | 2025-08-29 17:10 | XMS ---
PreManage Notification: LEO BARBA Security [employer]evelopment Specialist Events No recent Security Events currently on file CRITERIA MET - PDMP CARE PROVIDERS DR. KARISSA [facility] Clinic/Center: Primary Care Current MD [facility] \F\ <UNAVAIL> PHONE: [phone] Cristin has no Care Guidelines for this patient. E.DSami VISIT COUNT (12 MO.) [address] [facility] TOTAL 1 NOTE: Visits indicate total known visits. ED/UCC VISIT TRACKING (12 MO.) 08/29/2025 17:09 [facility] [place] TYPE: Emergency COMPLAINT: - HEART RATE ISSUE INPATIENT VISIT TRACKING (12 MO.) No inpatient visits to display in this time frame [email or web address]
[2025-08-29 17:28] LABS: BASOPHILS 0.6 % (0.1-1.2); EOSINOPHILS 1.4 % (0.7-5.8); LYMPHOCYTES 26.9 % (19.3-51.7); MCH 26.1 PG (25.6-32.2); MCHC 30.9 g/dL (32.2-35.5); MCV 84.6 fL (79.4-94.8); MONOCYTES 6.4 % (4.7-12.5); NEUTROPHILS 64.3 % (34.0-71.1); RBC 4.94 M/uL (3.93-5.22)
[2025-08-29] MEDS ORDERED: CEPHALEXIN500 MG PO (17:33)
[2025-08-29 17:58] LABS: ALT (SGPT) 27.0 U/L (14-59); AST (SGOT) 12.0 U/L (15-37); GLOMERULAR FILTRATION RATE,EST 65.0 mL/min (>60); PROTEIN, TOTAL 6.7 g/dL (6.4-8.2); TSH, 3RD GENERATION 1.116 uIU/mL (0.358-3.740); UREA NITROGEN 11.0 mg/dL (7-18)
[2025-08-29 18:49] VITALS: BP 118/69
--- NOTE | 2025-08-31 22:19 | EKG ---
[facility] [address] [facility] [place] [address] Signed Sinus tachycardia Low voltage QRS Incomplete right bundle branch block Borderline ECG No previous ECGs available Confirmed by Pedro Pablo Caldera MD () on 08/31/2025 10:19:06 PM Electronically Signed By: PEDRO PABLO CALDERA MD 08/31/25 2219 PATIENT NAME: LEO BARBA Electrocardiogram DATE OF : 64 PHYSICIAN: PEDRO PABLO CALDERA MD REPORT #: [id number] REPORT IS CONFIDENTIAL AND NOT TO BE RELEASED WITHOUT AUTHORIZATION
== END 2025-08-29 18:58 | disposition home or self-care (01) ==
LOC: ED 17:09
PROVIDERS: Emergency Medicine
DX: R00.0 Tachycardia, unspecified (principal); E11.65 Type 2 diabetes mellitus with hyperglycemia; I10 Essential (primary) hypertension; M19.90 Unspecified osteoarthritis, unspecified site; E03.9 Hypothyroidism, unspecified; Z79.899 Other long term (current) drug therapy; Z88.5 Allergy status to narcotic agent; Z88.8 Allergy status to other drugs, medicaments and biological substances
CPT/HCPCS: 36415; 71045; 80053; 80307; 83735; 84439; 84443; 84484; 85025; 93005; 93010; 99285-25